=== PATIENT | male | born 1965 | race Two or more races ===

== ENCOUNTER 2020-05-01 14:19 | Emergency (ER) | payer MEDICAID, OTHER ==
[~2020-05-01] VITALS: Ht 172.7 cm; Wt 72.6 kg
[2020-05-01] MEDS ORDERED: ERYTHROMY OPTH OINT 5mg/gm 1gm OP ONE (15:45)
[2020-05-01 17:25] VITALS: BP 144/93
== END 2020-05-01 17:45 | disposition home or self-care (01) ==
LOC: ER 14:19 → EDBD 14:19 → ER 17:45
DX: H44.001 Unspecified purulent endophthalmitis, right eye (principal); Z90.09 Acquired absence of other part of head and neck